=== PATIENT | female | born 1990 | race Two or more races ===

== ENCOUNTER 2023-01-11 11:15 | Inpatient (IN) | payer OTHER ==
[~2023-01-11] VITALS: Ht 154.9 cm; Wt 2.7 kg
[2023-01-11] MEDS ORDERED: UNISOM25 MG PO (13:36)
[2023-01-13] MEDS ORDERED: COMPLETE NATAL1 EACH PO (10:58)
== END 2023-01-15 17:05 | disposition home or self-care (01) | DRG 785 ==
LOC: O/R 01-13 10:30 → OB/GYN 01-13 10:30
PROVIDERS: ADMIT Obstetrics & Gynecology; ATTEND Obstetrics & Gynecology
PROC: 0UB70ZZ Excision of Bilateral Fallopian Tubes, Open Approach (ICD-10-PCS; 2023-01-13)
PROC: 0UB10ZZ Excision of Left Ovary, Open Approach (ICD-10-PCS; 2023-01-13)
PROC: 4A1HXCZ Monitoring of Products of Conception, Cardiac Rate, External Approach (ICD-10-PCS; 2023-01-13)
PROC: 10D00Z1 Extraction of Products of Conception, Low, Open Approach (ICD-10-PCS; principal; 2023-01-13 12:00)
DX: O34.211 Maternal care for low transverse scar from previous cesarean delivery (principal); O34.83 Maternal care for other abnormalities of pelvic organs, third trimester; N83.292 Other ovarian cyst, left side; Z3A.39 39 weeks gestation of pregnancy; Z37.0 Single live birth; Z20.822 Contact with and (suspected) exposure to COVID-19; Z30.2 Encounter for sterilization

== ENCOUNTER 2023-01-11 14:25 | Outpatient (CLI) | payer OTHER ==
[~2023-01-11 14:25] MED LIST: UNISOM25 MG PO
== END 2023-01-11 15:18 | disposition home or self-care (01) ==
LOC: NST 14:25
PROVIDERS: ATTEND Obstetrics & Gynecology
DX: Z34.83 Encounter for supervision of other normal pregnancy, third trimester (principal)